=== PATIENT | female | born 1995 | race Caucasian/White ===

== ENCOUNTER 2024-05-19 18:42 | Emergency (ER) | payer BC ==
[~2024-05-19] VITALS: Ht 177.8 cm; Wt 109.0 kg
[2024-05-19 18:56] VITALS: O2SAT 100
[2024-05-19] MEDS: LORAZEPAM 2MG/ML INJ IM ONE (22:18)
[2024-05-19] MEDS ORDERED: LORA-250 MT (23:02)
[2024-05-19 23:10] VITALS: BP 148/96; PULSE 97; RESP 18; TEMP 36.94740; O2SAT 98
== END 2024-05-19 23:10 | disposition home or self-care (01) ==
LOC: ER 18:42
DX: F43.0 Acute stress reaction (principal); R07.89 Other chest pain
CPT/HCPCS: 99283; 93005; 96372; J2060